=== PATIENT | male | born 1990 | race African-American/Black ===

== ENCOUNTER 2023-01-05 12:45 | Inpatient (IN) | payer OTHER ==
[~2023-01-05] VITALS: Ht 172.7 cm; Wt 81.6 kg
[2023-01-05] MEDS ORDERED: PERCTAB2 PO (13:21)
[2023-01-05] MEDS ORDERED: ACET-683 PO (13:29)
[2023-01-05] MEDS ORDERED: MED REC IN PROGRESS XX SCH (13:35)
[2023-01-05 13:50] LABS: HEMATOCRIT 45.4 % (42.0-52.0); HEMOGLOBIN 15.3 g/dl (13.5-17.5); MEAN CORPUSCULAR HEMOGLOBIN 29.8 pg (27.0-33.0); MEAN CORPUSCULAR HGB CONC 33.7 g/dl (32.0-36.5); MEAN CORPUSCULAR VOLUME 88.3 fl (80.0-96.0); PLATELET COUNT, AUTOMATED 308 10^3/uL (150-450); RED BLOOD COUNT 5.14 10^6/uL (4.30-6.10); WHITE BLOOD COUNT 5.8 10^3/uL (4.0-10.0)
[2023-01-05] MEDS ORDERED: HOME MED LIST COMPLETE! XX SCH (13:50)
[2023-01-05 14:11] LABS: ETHYL ALCOHOL (ETHANOL) < 0.003 % (0.000-0.010)
[2023-01-05 14:12] LABS: ALBUMIN 4.3 G/DL (3.2-5.2); ALKALINE PHOSPHATASE 67 U/L (46-116); ALT/SGPT 114 U/L (7.0-40); AST/SGOT 451 U/L (<34); BILIRUBIN,DIRECT 0.2 MG/DL (<0.4); BILIRUBIN,TOTAL 0.7 MG/DL (0.3-1.2); BLOOD UREA NITROGEN 20 MG/DL (9-23); CALCIUM LEVEL 9.9 MG/DL (8.5-10.1); CARBON DIOXIDE LEVEL 24 MMOL/L (20-31); CHLORIDE LEVEL 104 MMOL/L (98-107); CREATININE FOR GFR 1.19 MG/DL (0.70-1.30); GLOMERULAR FILTRATION RATE > 60.0 (>60); GLUCOSE, FASTING 85 MG/DL (60-100); POTASSIUM SERUM 4.1 MMOL/L (3.5-5.1); SALICYLATE LEVEL < 3.0 MG/DL (<30); SODIUM LEVEL 140 MMOL/L (136-145); TOTAL PROTEIN 7.8 G/DL (5.7-8.2)
[2023-01-05 14:14] LABS: THYROID STIMULATING HORMONE 3.601 uIU/ML (0.55-4.78)
[2023-01-05] MEDS ORDERED: ACETAMINOPHEN TAB 650MG DOSE (2X325MG) PO PRN (14:50)
[2023-01-05] MEDS ORDERED: IBUPROFEN 400MG TAB PO PRN (14:50)
[2023-01-05] MEDS ORDERED: MOM 30ML SUSPENSION UDC PO PRN (14:50)
[2023-01-05] MEDS ORDERED: diphenhydrAMINE 25MG CAP PO PRN (14:50)
[2023-01-05] MEDS ORDERED: MAALOX 30 ML SUSP *UDC PO PRN (14:50)
[2023-01-05 15:10] LABS: AMPHETAMINES LEVEL URINE NEGATIVE (NEGATIVE); BARBITURATES URINE NEGATIVE (NEGATIVE); BENZODIAZEPINES URINE NEGATIVE (NEGATIVE); CANNABINOIDS URINE NEGATIVE (NEGATIVE); COCAINE METABOLITE URINE NEGATIVE (NEGATIVE); METHADONE URINE NEGATIVE (NEGATIVE); OPIATES URINE NEGATIVE (NEGATIVE); PHENCYCLIDINE URINE NEGATIVE (NEGATIVE)
[2023-01-05 15:27] LABS: HEPATITIS C VIRUS ABY INDEX 0.05 INDEX (<0.8)
[2023-01-05 15:28] LABS: HEPATITIS B CORE ANTIBODY IGM NEGATIVE (NEGATIVE)
[2023-01-05 18:10] VITALS: BP 128/78; TEMP 98.2; O2SAT 99
[2023-01-05] MEDS: traZODone 50 MG TAB PO PRN (21:39)
[2023-01-06 07:05] VITALS: BP 111/80; TEMP 98.1; O2SAT 98
[2023-01-06] MEDS: buPROPion **XL** TABLET 150MG (WELLBUTRIN XL) PO SCH (09:43)
[2023-01-06] MEDS: VITAMIN D 1,000 INTERNATIONAL UNITS TABLET PO SCH (09:45)
[2023-01-06 16:03] VITALS: BP 127/77; TEMP 98.4; O2SAT 100
[2023-01-06] MEDS: traZODone 50 MG TAB PO PRN (21:11)
[2023-01-07 06:35] VITALS: BP 105/60; TEMP 97.2; O2SAT 100
[2023-01-07 08:59] LABS: ALBUMIN 3.7 G/DL (3.2-5.2); BILIRUBIN,DIRECT 0.2 MG/DL (<0.4); BILIRUBIN,TOTAL 0.5 MG/DL (0.3-1.2); TOTAL PROTEIN 6.7 G/DL (5.7-8.2)
[2023-01-07] MEDS: VITAMIN D 1,000 INTERNATIONAL UNITS TABLET PO SCH (10:00)
[2023-01-07] MEDS: buPROPion **XL** TABLET 150MG (WELLBUTRIN XL) PO SCH (10:00)
[2023-01-07 14:17] LABS: BLOOD UREA NITROGEN 14 MG/DL (9-23); CALCIUM LEVEL 9.9 MG/DL (8.5-10.1); CARBON DIOXIDE LEVEL 29 MMOL/L (20-31); CHLORIDE LEVEL 103 MMOL/L (98-107); CREATININE FOR GFR 1.15 MG/DL (0.70-1.30); GLOMERULAR FILTRATION RATE > 60.0 (>60); GLUCOSE, FASTING 81 MG/DL (60-100); POTASSIUM SERUM 4.2 MMOL/L (3.5-5.1); SODIUM LEVEL 140 MMOL/L (136-145)
[2023-01-07 16:13] VITALS: BP 146/86; TEMP 98.3; O2SAT 100
[2023-01-08 06:14] VITALS: BP 117/56; TEMP 97.5; O2SAT 100
[2023-01-08] MEDS: VITAMIN D 1,000 INTERNATIONAL UNITS TABLET PO SCH (09:33)
[2023-01-08] MEDS: buPROPion **XL** TABLET 150MG (WELLBUTRIN XL) PO SCH (09:34)
[2023-01-08] MEDS ORDERED: VITAD1000T PO (09:40)
[2023-01-08] MEDS ORDERED: TRAZ-252 PO (09:40)
[2023-01-08] MEDS ORDERED: BUPR150T12 PO (09:40)
== END 2023-01-08 11:03 | disposition home or self-care (01) | DRG 885 ==
LOC: M ED 12:45 → M ED INP 14:50 → M PSY 18:08
PROVIDERS: ADMIT Student in an Organized Health Care Education/Training Program; ATTEND Student in an Organized Health Care Education/Training Program
DX: F33.9 Major depressive disorder, recurrent, unspecified (principal); R45.851 Suicidal ideations; M62.82 Rhabdomyolysis; F41.1 Generalized anxiety disorder; F43.23 Adjustment disorder with mixed anxiety and depressed mood; Z79.899 Other long term (current) drug therapy; Z87.891 Personal history of nicotine dependence; Z63.0 Problems in relationship with spouse or partner; Z56.4 Discord with boss and workmates

== ENCOUNTER 2023-09-20 13:50 | Emergency (ER) | payer OTHER ==
[~2023-09-20] VITALS: Ht 172.7 cm; Wt 83.9 kg
[~2023-09-20 13:50] MED LIST: ACET-683 PO; BUPR150T12 PO; PERCTAB2 PO; TRAZ-252 PO; VITAD1000T PO
[2023-09-20] MEDS: FLUORESCEIN OPHTH 1MG STRIP OD ONE (15:16)
[2023-09-20] MEDS: PROPARACAINE 0.5% OPHTH SOL 15ML OD ONE (15:16)
[2023-09-20 15:57] VITALS: BP 132/82; TEMP 97.3; O2SAT 99
== END 2023-09-20 15:59 | disposition home or self-care (01) ==
LOC: M ED 13:50
DX: H53.141 Visual discomfort, right eye (principal); T65.94XA Toxic effect of unspecified substance, undetermined, initial encounter